=== PATIENT | male | born 1950 | race Caucasian/White ===

== ENCOUNTER 2019-07-13 12:55 | Emergency (ER) | payer MEDICARE, BC ==
--- NOTE | 2019-07-13 14:36 | CR ---
Date of Service: 07/13/19 Clinical Data: cough,r/o pneumonia PA AND LATERAL CHEST: The heart size is normal. There is calcification of the aortic arch. The lungs are mildly hyperexpanded. There are mild interstitial changes in both lungs. The lungs are otherwise clear. No pneumothorax. No pleural effusions. There is degenerative disk disease at multiple levels in the thoracic spine. [id number] MTDD
--- NOTE | 2019-07-13 17:13 | ER ---
REASON FOR EMERGENCY ROOM VISIT: Fever, chills, and cough. HISTORY: This 68-year-old man comes in with a 5-day history of chills, sweating, myalgias, and cough. He thinks he has had a fever, but did not actually take his temperature at home. He has had no GI symptoms. He denies any headache. His appetite has been somewhat diminished. PAST MEDICAL HISTORY: Hyperlipidemia. MEDICATIONS: Atorvastatin and aspirin. ALLERGIES: NONE TO MEDICATIONS. REVIEW OF SYSTEMS: Pertinent positives and negatives as listed in the HPI. PHYSICAL EXAMINATION: GENERAL: Reveals a pleasant man, in no acute distress. HEENT: No conjunctivitis is noted. Oropharynx is normal. NECK: Supple. No adenopathy. CHEST: Clear to auscultation with good air exchange. No wheezes, rhonchi, or rales. CARDIAC: Regular rate without murmur. ABDOMEN: Nontender. SKIN: No rashes. LABORATORY DATA: He is positive for influenza A. His chest x-ray shows no infiltrates or active pulmonary disease. IMPRESSION: Influenza A. PLAN: I discussed the Tamiflu as an option for treating him. The advantages and potential side effects were reviewed with him. I think for him it is a good idea, even though he is out. He is 5 days from the onset of his symptoms, primarily due to his age. He understands and agrees with this plan. Other supportive measures were discussed. All questions were answered. ALEXANDER /[id number]
== END 2019-07-13 14:30 | disposition home or self-care (01) ==
LOC: LB.ED 12:55
DX: J10.1 Influenza due to other identified influenza virus with other respiratory manifestations (principal)
CPT/HCPCS: 71046; 87804; 87804-59; 99283; 99283-25

== ENCOUNTER 2019-12-28 09:55 | Emergency (ER) | payer MEDICARE, BC ==
[2019-12-28] MEDS ORDERED: diphenhydrAMINE 25 MG Cap PO ONE (10:16)
[2019-12-28] MEDS ORDERED: predniSONE 20 MG Tab PO ONE (10:17)
[2019-12-28] MEDS ORDERED: predniSONE 20 MG Tab ONE (10:35)
[2019-12-28] MEDS ORDERED: diphenhydrAMINE 25 MG Cap ONE (10:35)
--- NOTE | 2019-12-28 10:54 | EDM.PDOC ---
ED HPI GENERAL MEDICAL PROBLEM - General Chief Complaint: General Stated Complaint: BEE STING Time Seen by Provider: 12/28/19 10:05 Source of Information: Reports: Patient History Limitations: Reports: No Limitations - History of Present Illness INITIAL COMMENTS - FREE TEXT/NARRATIVE: Patient reports that 1 hour ago while moving a flower pot he was stung twice on the RUE by a wasp. The patient reports a significant history of anaphylaxis and used his previously prescribed Epi-Pen. The patient presents to the ED reporting only mild pain at the sting sites. He denies any dyspnea, chest pain, rash, or pruritus. Onset: Today Duration: Hour(s): (1) Location: Reports: Upper Extremity, Right Quality: Reports: Burning Severity: Mild Improves with: Reports: Cold Therapy Worsens with: Reports: None Associated Symptoms: Reports: No Other Symptoms Treatments CANDY FEEDER: Reports: Other (see below) Other Treatments CANDY FEEDER: Epinephrine Right Arm Pain Score (Numeric/FACES): 2 - Related Data Allergies Allergy/AdvReac Type Severity Reaction Status Date / Time shellfish derived Allergy Cardiac Verified 07/13/19 13:15 Arrest bees Allergy Cardiac Uncoded 07/13/19 13:15 Arrest Home Meds: Home Meds Aspirin [Low Dose Aspirin EC] 81 mg PO DAILY 07/13/19 [History] atorvaSTATin [Lipitor] 20 mg PO BEDTIME 07/13/19 [History] Past Medical History Cardiovascular History: Reports: Hypertension - Infectious Disease History Infectious Disease History: Reports: Chicken Pox, Measles - Past Surgical History GI Surgical History: Reports: Appendectomy Social & Family History - Family History Family Medical History: Noncontributory - Caffeine Use Caffeine Use: Reports: Coffee, Soda ED ROS GENERAL - Review of Systems Review Of Systems: See Below Constitutional: Reports: No Symptoms HEENT: Reports: No Symptoms Respiratory: Reports: No Symptoms Cardiovascular: Reports: No Symptoms Musculoskeletal: Reports: Arm Pain Skin: Reports: Erythema Neurological: Reports: No Symptoms ED EXAM, GENERAL - Physical Exam Exam: See Below Exam Limited By: No Limitations General Appearance: Alert, WD/WN, No Apparent Distress Ears: Normal External Exam, Normal Canal, Hearing Grossly Normal, Normal TMs Nose: Normal Inspection, Normal Mucosa, No Blood Throat/Mouth: Normal Inspection, Normal Lips, Normal Teeth, Normal Gums, Normal Oropharynx, Normal Voice, No Airway Compromise Respiratory/Chest: No Respiratory Distress Cardiovascular: Normal Peripheral Pulses, Regular Rate, Rhythm, No Edema, No Gallop, No JVD, No Murmur, No Rub Skin Exam: Warm, Dry, Intact, Normal Color, No Rash Front/Back Body Diagram: 1 - 1 cm wheel with mild erythema 2 - 2 cm wheal with mild erythema Course - Vital Signs Last Recorded V/S: Last Vital Signs Temp 98.6 F 12/28/19 10:03 Pulse 115 H 12/28/19 10:03 Resp 20 12/28/19 10:03 BP 138/75 12/28/19 10:03 Pulse Ox 100 12/28/19 10:03 - Orders/Labs/Meds Meds: Medications Discontinued Medications Generic Name Dose Route Start Last Admin Trade Name Raq PRN Reason Stop Dose Admin Diphenhydramine HCl 25 mg 12/28/19 10:16 12/28/19 10:31 Benadryl PO 12/28/19 10:17 25 mg ONETIME ONE Administration Diphenhydramine HCl Confirm 12/28/19 10:35 Benadryl Administered 12/28/19 10:36 Dose 25 mg .ROUTE .STK-MED ONE Prednisone 20 mg 12/28/19 10:17 12/28/19 10:32 Prednisone PO 12/28/19 10:18 20 mg ONETIME ONE Administration Prednisone Confirm 12/28/19 10:35 Prednisone Administered 12/28/19 10:36 Dose 40 mg .ROUTE .STK-MED ONE - Re-Assessments/Exams Free Text/Narrative Re-Assessment/Exam: 12/28/19 10:54 Patient denies any acute complaints. Departure - Departure Time of Disposition: 11:16 Disposition: Home, Self-Care 01 Condition: Good Clinical Impression: Wasp sting Qualifiers: Encounter type: initial encounter - Discharge Information *PRESCRIPTION DRUG MONITORING PROGRAM REVIEWED*: Not Applicable *COPY OF PRESCRIPTION DRUG MONITORING REPORT IN PATIENT LISSA: Not Applicable Instructions: Bee, Wasp, or Hornet Sting, Adult Referrals: PCP,None [Primary Care Provider] - Forms: ED Department Discharge Sepsis Event Note (ED) - Evaluation Sepsis Screening Result: No Definite Risk - Focused Exam Vital Signs: Vital Signs Temp Pulse Resp BP Pulse Ox 12/28/19 10:03 98.6 F 115 H 20 138/75 100 - Problem List Review Problem List Initiated/Reviewed/Updated: Yes - Assessment/Plan Plan: DIFFERENTIAL DIAGNOSIS: Allergic Reaction Anaphylactic Reaction Bee Sting Among Others INITIAL PLAN: Benadryl Prednisone Monitoring MDM: The patient presents with only local symptoms at this time. He previously used his Epi-Pen immediately after the sting. Patient will be given an oral dose of both benadryl and prednisone, monitored for 30 minutes and if he has no changes discharged. The patient denied any symptoms on re-evaluation and has been stable throughout his ED stay. He stable and appropriate for discharged from the ED. Patient was given return warnings as well as follow-up instructions with his PCP. Patient has an additional EpiPen at home. FINAL PLAN: Discharge
== END 2019-12-28 11:46 | disposition home or self-care (01) ==
LOC: LB.ED 09:55
DX: T63.461A Toxic effect of venom of wasps, accidental (unintentional), initial encounter (principal); I10 Essential (primary) hypertension; Z91.013 Allergy to seafood; Z91.030 Bee allergy status; Z79.82 Long term (current) use of aspirin; Z79.899 Other long term (current) drug therapy
CPT/HCPCS: 99282; 99283; A9270-GY; J7512